=== PATIENT | male | born 2000 | race Caucasian/White ===

== ENCOUNTER 2022-10-19 08:57 | Day surgery (SDC) | payer OTHER ==
[2022-10-16 16:13] VITALS: BP 121/76
[~2022-10-19] VITALS: Ht 177.8 cm; Wt 84.5 kg
[2022-10-19 09:05] VITALS: BP 153/85
--- NOTE | 2022-10-19 11:28 | NUR ---
10/19/22 1128 Ariela Avalos 1120 PATIENT ARRIVES TO PACU AWAKE. RESP EVEN AND UNLABORED, NC AT 4 LITERS. PATIENT TOOK HIS NC OFF. ROOM AIR SATS >93%. 1125 PATIENT SITTING UP DRINKING WATER. ASKING/ANSWERING QUESTIONS APPROPRIATELY. RESP EVEN AND UNLABORED, ROOM AIR SATS >93%. DENIES PAIN OR NASUEA.
[2022-10-19 11:41] VITALS: BP 134/87
--- NOTE | 2022-10-19 14:34 | OR ---
[facility] [address] [place], [place] [address] Signed DATE OF OPERATION: 10/19/2022 SURGEON: Ihsan Mir MD PREOPERATIVE DIAGNOSES: 1. Cough with sputum and blood. 2. Daily marijuana use. POSTOPERATIVE DIAGNOSIS: Mild patchy distal gastritis. PROCEDURE: EGD with CLOtest and biopsies of the antrum. ESTIMATED BLOOD LOSS: None. INDICATIONS: Matt is a 22-year-old gentleman, asked to see me for upper endoscopy. He has significant anxiety and depression, apparently he is using marijuana on a daily basis. He has been working with his primary care provider. He has been through a fairly significant evaluation. He has undergone a negative chest x-ray and a negative echocardiogram and a negative Holter monitor and even a negative ultrasound of the chest with a pending mammogram. He has been to our local Ear, Nose, and Throat surgeon for evaluation as well. He tried Flonase and a number of different medications without much success. He has been coughing up apparently sputum or saliva with some dark spots in it. Therefore, he was asked to see me for upper endoscopy as a local general surgeon. He said it has been going on now for a good six months. He had come in the office with his girlfriend. In the office, I gave him a pamphlet on upper endoscopy. We had reviewed the nature of the test. There is risk including, but not limited to gas bloating, crampy abdominal pain, bleeding, perforation requiring surgery and missed diagnosis. We also reviewed the need for monitored anesthesia care given his daily use of marijuana. He had expressed understanding and wished to proceed. PROCEDURE NOTE: Matt was taken into our endoscopy suite and placed in the supine semi-recumbent position. A bite block was utilized for the case. He was given monitored anesthesia care with propofol infusion per our nurse nuclear medical technologist. The adult gastroscope was introduced and advanced under direct visualization of the camera out into the duodenum. The duodenum and pyloric channel were unremarkable. The stomach showed distal patchy Electronically Signed By: IHSAN MIR MD 10/19/22 1434 PATIENT NAME: MATT RICO OPERATIVE REPORT DATE OF : 00 REPORT #: [id number] PHYSICIAN: IHSAN MIR MD PCP: SUKUMAR SAN PA-C REPORT IS CONFIDENTIAL AND NOT TO BE RELEASED WITHOUT AUTHORIZATION [facility] [address] [place] [id number] Signed gastritis common with people who smoke. We took a biopsy of the antrum for CLOtest as well as pathologic review. Upon retroflexion of the scope, there was no obvious pathology associated with the cardia. The scope was withdrawn up to the area of the GE junction, which was compliant without stricture. Z-line generally remains intact. There is no ulceration or Swati-Ortega tear. There is no stricture, no gastric or esophageal varices. There was no Phelan's mucosa and no distal esophagitis. The middle and upper esophagus were unremarkable. After this, the gas was suctioned out and the gastroscope removed. Matt tolerated the procedure quite well. RECOMMENDATIONS: I will see Matt back in my office in 7 to 14 days to review his results. Again, he would be advised to strongly discontinue his marijuana use. Ihsan Mir MD ALB/MODL /[id number] cc: MD Sukumar Antoine PA Copies: IHSAN MIR MD ~ Electronically Signed By: IHSAN MIR MD 10/19/22 1434 PATIENT NAME: MAKSIM FULTONMATT OPERATIVE REPORT DATE OF : 00 REPORT #: [id number] PHYSICIAN: IHSAN MIR MD PCP: SUKUMAR SAN PA-C REPORT IS CONFIDENTIAL AND NOT TO BE RELEASED WITHOUT AUTHORIZATION
== END 2022-10-19 11:45 | disposition home or self-care (01) ==
LOC: OPS 08:57 → DS 08:57 → OPS 10:25
PROVIDERS: ATTEND Colon & Rectal Surgery
PROC: 0DB68ZX Excision of Stomach, Via Natural or Artificial Opening Endoscopic, Diagnostic (ICD-10-PCS; principal; 2022-10-19 10:25)
DX: K92.0 Hematemesis (principal); F41.9 Anxiety disorder, unspecified; F32.A Depression, unspecified; F12.10 Cannabis abuse, uncomplicated; Z91.048 Other nonmedicinal substance allergy status; K29.70 Gastritis, unspecified, without bleeding
CPT/HCPCS: 36415; 87077; J2704; J3010; J7121